=== PATIENT | male | born 1985 | race American Indian/Alaskan Native ===

== ENCOUNTER 2016-12-13 12:30 | Outpatient (CLI) | payer BC ==
--- NOTE | 2016-12-13 15:27 | Magnetic Resonance Report ---
MRI BRAIN WITHOUT AND WITH CONTRAST: 12/13/16 CLINICAL: Migraines. Visual disturbance. TECHNIQUE: Axial diffusion, T1, FLAIR, gradient echo T2*, and coronal and axial T2 and sagittal T1 plus coronal and axial postcontrast T1 sequences on a 1.5 Jennifer magnet. 12.0 cc of Multihance was injected intravenously for the contrast portion of the exam. Consent was obtained prior to the administration of contrast. FINDINGS: Normal ventricles and sulci. No restricted diffusion. No mass or enhancing lesion. No abnormal signal on any of the sequences. However, considerable linear artifacts on the postcontrast 3-D FSPGR sequences that are related to hair payal. The artifacts are predominantly hyperintense but a hypointense artifact extends in a radial fashion through the left basal ganglia. No corresponding signal abnormality on other sequences. No hemorrhage, edema or extra-axial collection. Normal pituitary and optic chiasm. The brainstem and cerebellum are normal. Intact vascular flow voids. The orbits, sinuses and soft tissues are normal. Normal calvarium and skull base. IMPRESSION: Normal study.
== END 2016-12-13 12:31 | disposition home or self-care (01) ==
LOC: SPVIMAG 12:30
PROVIDERS: ATTEND Internal Medicine
DX: G43.909 Migraine, unspecified, not intractable, without status migrainosus (principal); H53.9 Unspecified visual disturbance; H54.7 Unspecified visual loss
CPT/HCPCS: 70553; A9577